=== PATIENT | female | born 1945 | race Caucasian/White ===

== ENCOUNTER → 2016-07-05 | Outpatient (CLI) | payer MEDICARE, BC ==
--- NOTE | 2016-07-06 11:06 | MM ---
Reason for exam: screening (asymptomatic). Last mammogram was performed 1 year ago. History: Patient is postmenopausal. Family history of breast cancer in 3 paternal cousins. Benign stereotactic core biopsy of the right breast, June 09, 2001. Physical Findings: A clinical breast exam by your physician is recommended on an annual basis and results should be correlated with mammographic findings. MG 3D Screening Mammo W/Cad Bilateral CC and MLO view(s) were taken. Prior study comparison: July 04, 2015, bilateral MG 3d screening mammo w/cad. July 01, 2014, left breast MG work up mamm w CAD LT. There are scattered fibroglandular densities. Previous mammotome biopsy in the right breast. No significant changes when compared with prior studies. ASSESSMENT: Benign, BI-RAD 2 RECOMMENDATION: Routine screening mammogram of both breasts in 1 year.
== END ==
LOC: RADMAMWWP 14:01
PROVIDERS: ATTEND Family Medicine
DX: Z12.31 Encounter for screening mammogram for malignant neoplasm of breast (principal)
CPT/HCPCS: 77063; G0202

== ENCOUNTER → 2016-08-16 | Outpatient (CLI) | payer MEDICARE, BC ==
--- NOTE | 2016-08-16 20:29 | BD ---
EXAMINATION TYPE: MG DEXA axial skeleton. DATE OF EXAM: 08/16/2016 12:57 PM COMPARISON: NONE CLINICAL HISTORY: 70-year-old female known osteoporosis Height: 65 Weight: 128.9 FRAX RISK QUESTIONS: Alcohol (3 or more units per day): no Family History (Parent hip fracture): no Glucocorticoids (More than 3mos): no (Ex: prednisone, prednisolone, methylprednisolone, dexamethasone, and hydrocortisone). History of Fracture in Adulthood: no Secondary Osteoporosis: 1. Type 1 Diabetes: no 2. Hyperthyroidism: no 3. Menopause before 45: yes 4. Malnutrition: no 5. Chronic liver disease: no Rheumatoid Arthritis: no Current Tobacco Use: no RISK FACTORS HISTORY OF: Hip Fracture (Right/Left): no Spine Fracture: no History of Wrist Fracture: no Surgery to Spine/Hip(right/left)/Wrist (right/left): no Family History of Osteoporosis: no Active: yes Diet low in dairy products/other sources of calcium: no Postmenopausal woman: hysterectomy age 37 Lost more than 2 inches in height since high school: yes Frequent falls: no Poor Health: no Adrenal Insufficiency: no MEDICATIONS: eye drops for glaucoma EXAM MEASUREMENTS: Bone mineral densitometry was performed using the [employer] System. Bone mineral density as measured about the Lumbar spine is: ----- L1-L4(G/cm2): 0.917 T Score Values are as follows: ----- L2: -2.1 ----- L3: -2.2 ----- L4: -2.7 ----- L1-L4: -2.2 Bone mineral density has: decreased -8.1 % since study of: 06.29.2013 Bone mineral density about the R hip (g/cm2): 0.801 Bone mineral density about the L hip (g/cm2): 0.765 T Score values are as follows: -----R Neck: -1.7 -----L Neck: -2.0 -----R Intertrochanter: -2.1 -----L Intertrochanter: -2.5 Bone mineral density has: decreased -5.5 % since study of: 06.29.2013 IMPRESSION: Osteopenia (T Score between -2.5 and -1) as noted by T score values in the lumbar spine and both hips . Note that measurements borderline osteoporosis within the lumbar spine. There is slightly increased risk of fracture and the patient may be considered for treatment. Re-Screen 2-5 years. NOTE: T-SCORE=SD OF THE YOUNG ADULT MEAN.
== END | disposition home or self-care (01) ==
LOC: RADBDWWP 12:29
PROVIDERS: ATTEND Family Medicine
DX: M85.851 Other specified disorders of bone density and structure, right thigh (principal); M81.0 Age-related osteoporosis without current pathological fracture; M85.852 Other specified disorders of bone density and structure, left thigh; M85.88 Other specified disorders of bone density and structure, other site
CPT/HCPCS: 77080

== ENCOUNTER 2017-01-12 19:16 | Emergency (ER) | payer MEDICARE, BC ==
[2017-01-12 19:24] VITALS: TEMP 97.6
[2017-01-12] MEDS ORDERED: SODIUM CHLORIDE 0.9% 1,000 ML IV STA (19:27)
--- NOTE | 2017-01-12 19:29 | ED ---
General Adult HPI - General Chief complaint: Dizziness Stated complaint: Dizzy Time Seen by Provider: 01/12/17 19:26 Source: patient, RN notes reviewed, old records reviewed Mode of arrival: wheelchair Limitations: no limitations - History of Present Illness Initial comments: This is a 71-year-old female the ER for evaluation today. Patient does present today evaluation regarding symptoms of that appeared to be like vertigo. Patient states the room was spinning around severely she felt that her nausea started to up and symptoms resolved. Patient has history of brain MRI 4 years ago which was normal. Patient has 4 episodes of similar events usually wince going from this position is standing to lying on her back and getting into bed. She states the room spins around she becomes nauseous those up and symptoms resolved. She not get checked out before as she thought that it was is a rare occurrence and because of both times it was self-limited patient coming in for evaluation today as she is just concerned over X and states that this happened and off times to be checked out - Related Data Home Medications Medication Instructions Recorded Confirmed Ascorbic Acid [Vitamin C] 500 mg PO DAILY 01/12/17 01/12/17 Calcium Carbonate/Vitamin D3 1 tab PO DAILY 01/12/17 01/12/17 [Calcium 600-Vit D3 800 Tab] Cholecalciferol [Vitamin D3] 5,000 unit PO DAILY 01/12/17 01/12/17 Latanoprost Ophth [Xalatan 0.005%] 1 drops BOTH EYES HS 01/12/17 01/12/17 Loratadine 10 mg PO DAILY 01/12/17 01/12/17 Lysine [l-Lysine] 500 mg PO DAILY 01/12/17 01/12/17 Magnesium Oxide [Mag-Ox] 250 mg PO DAILY 01/12/17 01/12/17 Multivitamins, Thera [Multivitamin 1 tab PO DAILY 01/12/17 01/12/17 (formulary)] Osteo Bone Complex 2 tab PO BID 01/12/17 01/12/17 Potassium 99 mg PO DAILY 01/12/17 01/12/17 Allergies Allergy/AdvReac Type Severity Reaction Status Date / Time No Known Allergies Allergy Verified 01/12/17 19:46 Review of Systems ROS Statement: Those systems with pertinent positive or pertinent negative responses have been documented in the HPI. ROS Other: All systems not noted in ROS Statement are negative. Past Medical History Past Medical History: No Reported History History of Any Multi-Drug Resistant Organisms: None Reported Additional Past Surgical History / Comment(s): thyroid sx Past Psychological History: No Psychological Hx Reported Smoking Status: Former smoker Past Alcohol Use History: Rare Past Drug Use History: None Reported General Exam - General Exam Comments Initial Comments: NH 20, no cerebellar deficit, heel toe and finger nose are normal Limitations: no limitations General appearance: alert, in no apparent distress Head exam: Present: atraumatic, normocephalic, normal inspection Eye exam: Present: normal appearance, PERRL, EOMI, nystagmus (Left). Absent: scleral icterus, conjunctival injection, periorbital swelling ENT exam: Present: normal exam, mucous membranes moist Neck exam: Present: normal inspection. Absent: tenderness, meningismus, lymphadenopathy Respiratory exam: Present: normal lung sounds bilaterally. Absent: respiratory distress, wheezes, rales, rhonchi, stridor Cardiovascular Exam: Present: regular rate, normal rhythm, normal heart sounds. Absent: systolic murmur, diastolic murmur, rubs, gallop, clicks GI/Abdominal exam: Present: soft, normal bowel sounds. Absent: distended, tenderness, guarding, rebound, rigid Extremities exam: Present: normal inspection, full ROM, normal capillary refill. Absent: tenderness, pedal edema, joint swelling, calf tenderness Back exam: Present: normal inspection Neurological exam: Present: alert, oriented X3, CN II-XII intact Psychiatric exam: Present: normal affect, normal mood Skin exam: Present: warm, dry, intact, normal color. Absent: rash Course Vital Signs 01/12/17 01/12/17 19:19 19:31 Temperature 97.6 F Pulse Rate 64 61 Respiratory 18 16 Rate Blood Pressure 136/83 135/82 O2 Sat by Pulse 100 100 Oximetry - Reevaluation(s) Reevaluation #1: 01/12/17 21:02 Spoke with family regarding diagnosis of vertigo. The patient, at this time patient able to stand and ambulate without difficulty or ataxia. EKG Findings - EKG Comments: EKG Findings:: EKG shows normal sinus rhythm rate of 64, NM 46, QRS 76, QTC 441 Medical Decision Making - Medical Decision Making 71 female here for evaluation. Patient has a vertiginous symptoms. At this time patient has remained without symptoms throughout emergency department stay. Patient can be discharged home - Lab Data Result diagrams: 01/12/17 19:45 01/12/17 19:45 Lab Results 01/12/17 01/12/17 01/12/17 Range/Units 19:45 19:45 19:45 WBC 9.6 (3.8-10.6) k/uL RBC 4.46 (3.80-5.40) m/uL Hgb 14.8 (11.4-16.0) gm/dL Hct 43.3 (34.0-46.0) % MCV 97.0 (80.0-100.0) fL MCH 33.3 (25.0-35.0) pg MCHC 34.3 (31.0-37.0) g/dL RDW 12.8 (11.5-15.5) % Plt Count 230 (150-450) k/uL Neutrophils % 84 % Lymphocytes % 10 % Monocytes % 3 % Eosinophils % 1 % Basophils % 0 % Neutrophils # 8.1 H (1.3-7.7) k/uL Lymphocytes # 1.0 (1.0-4.8) k/uL Monocytes # 0.3 (0-1.0) k/uL Eosinophils # 0.1 (0-0.7) k/uL Basophils # 0.0 (0-0.2) k/uL PT (9.0-12.0) sec INR (<1.2) APTT (22.0-30.0) sec Sodium 138 (137-145) mmol/L Potassium 5.0 (3.5-5.1) mmol/L Chloride 106 (98-107) mmol/L Carbon Dioxide 24 (22-30) mmol/L Anion Gap 8 mmol/L BUN 21 H (7-17) mg/dL Creatinine 0.69 (0.52-1.04) mg/dL Est GFR (MDRD) Af Amer >60 (>60 ml/min/1.73 sqM) Est GFR (MDRD) Non-Af >60 (>60 ml/min/1.73 sqM) Glucose 107 H (74-99) mg/dL Calcium 9.6 (8.4-10.2) mg/dL Phosphorus 3.1 (2.5-4.5) mg/dL Magnesium 2.2 (1.6-2.3) mg/dL Total Bilirubin 1.2 (0.2-1.3) mg/dL AST 44 H (14-36) U/L ALT 26 (9-52) U/L Alkaline Phosphatase 64 (38-126) U/L Total Creatine Kinase 118 (30-135) U/L CK-MB (CK-2) 3.2 H* (0.0-2.4) ng/mL CK-MB (CK-2) Rel Index 2.7 Troponin I <0.012 (0.000-0.034) ng/mL Total Protein 7.2 (6.3-8.2) g/dL Albumin 4.2 (3.5-5.0) g/dL 01/12/17 Range/Units 19:45 WBC (3.8-10.6) k/uL RBC (3.80-5.40) m/uL Hgb (11.4-16.0) gm/dL Hct (34.0-46.0) % MCV (80.0-100.0) fL MCH (25.0-35.0) pg MCHC (31.0-37.0) g/dL RDW (11.5-15.5) % Plt Count (150-450) k/uL Neutrophils % % Lymphocytes % % Monocytes % % Eosinophils % % Basophils % % Neutrophils # (1.3-7.7) k/uL Lymphocytes # (1.0-4.8) k/uL Monocytes # (0-1.0) k/uL Eosinophils # (0-0.7) k/uL Basophils # (0-0.2) k/uL PT 10.3 (9.0-12.0) sec INR 1.0 (<1.2) APTT 22.4 (22.0-30.0) sec Sodium (137-145) mmol/L Potassium (3.5-5.1) mmol/L Chloride (98-107) mmol/L Carbon Dioxide (22-30) mmol/L Anion Gap mmol/L BUN (7-17) mg/dL Creatinine (0.52-1.04) mg/dL Est GFR (MDRD) Af Amer (>60 ml/min/1.73 sqM) Est GFR (MDRD) Non-Af (>60 ml/min/1.73 sqM) Glucose (74-99) mg/dL Calcium (8.4-10.2) mg/dL Phosphorus (2.5-4.5) mg/dL Magnesium (1.6-2.3) mg/dL Total Bilirubin (0.2-1.3) mg/dL AST (14-36) U/L ALT (9-52) U/L Alkaline Phosphatase (38-126) U/L Total Creatine Kinase (30-135) U/L CK-MB (CK-2) (0.0-2.4) ng/mL CK-MB (CK-2) Rel Index Troponin I (0.000-0.034) ng/mL Total Protein (6.3-8.2) g/dL Albumin (3.5-5.0) g/dL - Radiology Data Radiology results: report reviewed (CT brain is negative for acute disease), image reviewed Disposition Clinical Impression: Vertigo, BPPV (benign paroxysmal positional vertigo) Disposition: HOME SELF-CARE Condition: Good Instructions: Vertigo (ED) Referrals: Dinorah Rosenbaum MD [Primary Care Provider] - 1-2 days
[2017-01-12 19:38] VITALS: RESP 16
[2017-01-12 20:04] LABS: Basophils % (A) 0 %; CH 32.3; CHCM 33.4; Eosinophils # (A) 0.1 k/uL (0-0.7); Eosinophils % (A) 1 %; HCT 43.3 % (34.0-46.0); HDW 2.17; HGB 14.8 gm/dL (11.4-16.0); Luc # (Auto) 0.09; Luc % (Auto) 1; Lymphocytes % (A) 10 %; MCH 33.3 pg (25.0-35.0); MCHC 34.3 g/dL (31.0-37.0); Mean Platelet Volume 6.8; Monocytes # (A) 0.3 k/uL (0-1.0); Monocytes % (A) 3 %; Neutrophils # (A) 8.1 k/uL (1.3-7.7); Neutrophils % (A) 84 %; RBC 4.46 m/uL (3.80-5.40); RDW 12.8 % (11.5-15.5); WBC 9.6 k/uL (3.8-10.6); WBC (Perox) 10.12
[2017-01-12 20:16] LABS: Partial Thromboplastin Time 22.4 sec (22.0-30.0); Prothrombin Time 10.3 sec (9.0-12.0)
[2017-01-12 20:23] LABS: ALT 26 U/L (9-52); AST 44 U/L (14-36); Alkaline Phosphatase 64 U/L (38-126); Anion Gap 8 mmol/L; Blood Urea Nitrogen 21 mg/dL (7-17); Calcium 9.6 mg/dL (8.4-10.2); Carbon Dioxide 24 mmol/L (22-30); Chloride 106 mmol/L (98-107); Glucose 107 mg/dL (74-99); Magnesium 2.2 mg/dL (1.6-2.3); Non-African American GFR(MDRD) >60 (>60 ml/min/1.73 sqM); Phosphorous 3.1 mg/dL (2.5-4.5); Sodium 138 mmol/L (137-145); Total Bilirubin 1.2 mg/dL (0.2-1.3); Total Protein 7.2 g/dL (6.3-8.2)
[2017-01-12 20:28] LABS: Creatine Kinase 118 U/L (30-135)
[2017-01-12 20:41] LABS: Troponin I <0.012 ng/mL (0.000-0.034)
[2017-01-12 20:44] LABS: Creatine Kinase MB 3.2 ng/mL (0.0-2.4)
--- NOTE | 2017-01-12 20:59 | CT ---
EXAMINATION TYPE: CT brain wo con DATE OF EXAM: 01/12/2017 COMPARISON: NONE HISTORY: Dizziness. CT DLP: 1072.3 mGycm Automated exposure control for dose reduction was used. FINDINGS: Ventricles have normal size. There is no mass effect nor midline shift. There is no sign of intracran ial hemorrhage. The calvarium is intact. IMPRESSION: NEGATIVE CT SCAN OF THE BRAIN.
[2017-01-12 21:09] VITALS: BP 127/73; PULSE 74
[2017-01-12 21:25] LABS: Amorphous Sediment,Urine Moderate /hpf; Appearance,Urine Turbid (Clear); Bilirubin,Urine Negative (Negative); Glucose,Urine (UA) Negative (Negative); Ketones,Urine Negative (Negative); Leukocyte Esterase,Urine Negative (Negative); Nitrite,Urine Negative (Negative); Particle Count 6909; Protein,Urine Negative (Negative); UA Billing (MACRO vs. MICRO) MICRO; Urobilinogen,Urine <2.0 mg/dL (<2.0)
== END 2017-01-12 21:51 | disposition home or self-care (01) ==
LOC: EC 19:16
DX: H81.10 Benign paroxysmal vertigo, unspecified ear (principal); H55.00 Unspecified nystagmus; Z87.891 Personal history of nicotine dependence; Z79.899 Other long term (current) drug therapy
CPT/HCPCS: 36415; 70450; 80053; 81001; 82550; 82553; 83735; 84100; 84484; 85025; 85610; 85730; 87086; 93005; 96360; 99285

== ENCOUNTER → 2017-07-08 | Outpatient (CLI) | payer MEDICARE, BC ==
--- NOTE | 2017-07-10 12:47 | MM ---
Reason for exam: screening (asymptomatic). Last mammogram was performed 1 year ago. History: Patient is postmenopausal. Family history of breast cancer in 3 paternal cousins. Benign stereotactic core biopsy of the right breast, June 09, 2001. Physical Findings: A clinical breast exam by your physician is recommended on an annual basis and results should be correlated with mammographic findings. MG 3D Screening Mammo W/Cad Bilateral CC and MLO view(s) were taken. Prior study comparison: July 05, 2016, bilateral MG 3d screening mammo w/cad. July 04, 2015, bilateral MG 3d screening mammo w/cad. There are scattered fibroglandular densities. Finding: There are typically benign vascular, round calcifications in both breasts. Previous mammotome biopsy in the right breast. There is no discrete abnormality. ASSESSMENT: Benign, BI-RAD 2 RECOMMENDATION: Routine screening mammogram of both breasts in 1 year.
== END | disposition home or self-care (01) ==
LOC: RADMAMWWP 07:54
PROVIDERS: ATTEND Family Medicine
DX: Z12.31 Encounter for screening mammogram for malignant neoplasm of breast (principal)
CPT/HCPCS: 77063; 77067

== ENCOUNTER → 2018-04-30 | Day surgery (SDC) | payer MEDICARE, BC ==
[2018-04-25 14:27] VITALS: BMI 20.3
[~2018-04-30] MED LIST: LACTATED RINGERS 1,000 ML IV SCH; LIDOCAINE 1% 20 ML VIAL (10MG/ML) FOR IV START INTRADERMA PRN; PROPOFOL 10 MG/ML 20 ML VIAL IV ONE
[2018-04-30 09:42] VITALS: TEMP 97.8
--- NOTE | 2018-04-30 10:17 | P.GSHP ---
History of Present Illness H&P Date: 04/30/18 Chief Complaint: GI bleed This is a 72-year-old female who presents today for colonoscopy. She had a three-day history of rectal bleeding. The bleeding has stopped. The patient will undergo colonoscopy today to evaluate for rectal bleeding. Past Medical History Past Medical History: No Reported History, Eye Disorder Additional Past Medical History / Comment(s): Blood in stool, Glaucoma History of Any Multi-Drug Resistant Organisms: None Reported Past Surgical History: Adenoidectomy, Breast Surgery, Hysterectomy, Tonsillectomy Additional Past Surgical History / Comment(s): thyroid sx, colonoscopy, D&C's, R breast bx. Past Anesthesia/Blood Transfusion Reactions: Previous Problems w/ Anesthesia Additional Past Anesthesia/Blood Transfusion Reaction / Comment(s): Difficult to wake up after anesthesia. Smoking Status: Former smoker - Past Family History Mother Family Medical History: No Reported History Medications and Allergies Home Medications Medication Instructions Recorded Confirmed Type Ascorbic Acid [Vitamin C] 500 mg PO DAILY 01/12/17 04/30/18 History Calcium Carbonate/Vitamin D3 1 tab PO DAILY 01/12/17 04/30/18 History [Calcium 600-Vit D3 800 Tab] Cholecalciferol [Vitamin D3] 5,000 unit PO DAILY 01/12/17 04/30/18 History Latanoprost Ophth [Xalatan 0.005%] 1 drops BOTH EYES HS 01/12/17 04/30/18 History Loratadine 10 mg PO DAILY 01/12/17 04/30/18 History Lysine [l-Lysine] 500 mg PO DAILY 01/12/17 04/30/18 History Magnesium Oxide [Mag-Ox] 250 mg PO DAILY 01/12/17 04/30/18 History Meclizine [Antivert] 25 mg PO TID #30 tab 01/12/17 04/30/18 Rx Multivitamins, Thera [Multivitamin 1 tab PO DAILY 01/12/17 04/30/18 History (formulary)] Ondansetron Odt [Zofran Odt] 4 mg PO Q8HR PRN #30 tab 01/12/17 04/30/18 Rx Osteo Bone Complex 2 tab PO BID 01/12/17 04/30/18 History Potassium 99 mg PO DAILY 01/12/17 04/30/18 History Timolol Maleate [Timolol Maleate 1 applic BOTH EYES DAILY 04/25/18 04/30/18 History 0.5% Ophth Gel] Allergies Allergy/AdvReac Type Severity Reaction Status Date / Time No Known Allergies Allergy Verified 04/30/18 09:25 Surgical - Exam Vital Signs Temp Pulse Resp BP Pulse Ox 97.8 F 71 15 115/72 98 04/30/18 09:40 04/30/18 09:40 04/30/18 09:40 04/30/18 09:40 04/30/18 09:40 - General well developed, no distress - Eyes PERRL - ENT normal pinna - Neck no masses - Respiratory normal expansion - Cardiovascular Rhythm: regular - Abdomen Abdomen: soft, non tender Assessment and Plan Assessment: GI bleed. We'll perform colonoscopy.
[2018-04-30 10:32] VITALS: RESP 16
--- NOTE | 2018-04-30 10:32 | P.OP ---
Date of Procedure: 04/30/18 Preoperative Diagnosis: GI bleed Postoperative Diagnosis: Diverticulosis Procedure(s) Performed: Colonoscopy Anesthesia: MAC Surgeon: Scott Lyons Pathology: none sent Condition: stable Disposition: PACU Description of Procedure: The patient's placed on the endoscopy table in the lateral position. She received IV sedation. Digital rectal exam was performed which revealed no abnormalities. The flexible colonoscope was then placed patient anus and passed throughout the entire colon. The ileocecal valve was visualized. The cecum, ascending and transverse colon appeared normal. In the descending; was mild diverticular changes. The scope was then brought back the rectum and this appeared normal. Scope was withdrawn for patient.
[2018-04-30 10:59] VITALS: BP 122/80; PULSE 69
--- NOTE | 2018-05-02 18:11 | CDI ---
Date: 05/02/18 CDS/Senior Project Coordinator Name: Hue Pineda Phone: If any questions, call Amy Kamara Septic [employer] Service Technician at [phone] Patient Name: Rebecca Irizarry Admit Date: 04/30/18 Discharge Date: 04/30/18 ATTENTION: The [facility] Coding Staff appreciate your assistance in clarifying documentation. Please respond to the clarification below the line at the bottom and electronically sign. The [facility] Coding staff will review the response and follow-up if needed. Please note: Queries are made part of the Legal Health Record. If you have any questions, please contact the Septic Tank Service Technician. Dear Dr. Lyons, Please provide clarification as to if the GI bleed is secondary to one of the diagnoses found. Thank you for your kind consideration. There was no evidence of active GI bleed. It is presumed that she may have had a GI bleed from the diverticulosis. MTDD
== END ==
LOC: ORWHC2ENDO 09:11
PROVIDERS: ATTEND Surgery
DX: K57.30 Diverticulosis of large intestine without perforation or abscess without bleeding (principal); K92.2 Gastrointestinal hemorrhage, unspecified; H40.9 Unspecified glaucoma; Z87.891 Personal history of nicotine dependence; Z79.899 Other long term (current) drug therapy
CPT/HCPCS: 45378; J2704

== ENCOUNTER → 2018-07-09 | Outpatient (CLI) | payer MEDICARE, BC ==
--- NOTE | 2018-07-11 10:16 | MM ---
Reason for exam: screening (asymptomatic). Last mammogram was performed 1 year ago. History: Patient is postmenopausal. Family history of breast cancer in 3 paternal cousins. Benign stereotactic core biopsy of the right breast, June 09, 2001. Physical Findings: A clinical breast exam by your physician is recommended on an annual basis and results should be correlated with mammographic findings. MG 3D Screening Mammo W/Cad Bilateral CC and MLO view(s) were taken. Prior study comparison: July 08, 2017, bilateral MG 3d screening mammo w/cad. July 05, 2016, bilateral MG 3d screening mammo w/cad. There are scattered fibroglandular densities. Previous mammotome biopsy in the right breast. No significant changes when compared with prior studies. ASSESSMENT: Negative, BI-RAD 1 RECOMMENDATION: Routine screening mammogram of both breasts in 1 year.
== END | disposition home or self-care (01) ==
LOC: RADMAMWWP 14:40
PROVIDERS: ATTEND Family Medicine
DX: Z12.31 Encounter for screening mammogram for malignant neoplasm of breast (principal)
CPT/HCPCS: 77063; 77067

== ENCOUNTER → 2019-10-02 | Outpatient (CLI) | payer MEDICARE, BC ==
--- NOTE | 2019-10-06 11:51 | MM ---
Reason for exam: screening (asymptomatic). Last mammogram was performed 1 year and 3 months ago. History: Patient is postmenopausal. Family history of breast cancer in 3 paternal cousins. Benign stereotactic core biopsy of the right breast, June 09, 2001. Physical Findings: A clinical breast exam by your physician is recommended on an annual basis and results should be correlated with mammographic findings. MG 3D Screening Mammo W/Cad Bilateral CC and MLO view(s) were taken. Prior study comparison: July 09, 2018, bilateral MG 3d screening mammo w/cad. July 08, 2017, bilateral MG 3d screening mammo w/cad. The breast tissue is heterogeneously dense. This may lower the sensitivity of mammography. Previous mammotome biopsy in the right breast. No significant changes when compared with prior studies. ASSESSMENT: Negative, BI-RAD 1 RECOMMENDATION: Routine screening mammogram of both breasts in 1 year.
== END | disposition home or self-care (01) ==
LOC: RADMAMWWP 07:32
PROVIDERS: ATTEND Family Medicine
DX: Z12.31 Encounter for screening mammogram for malignant neoplasm of breast (principal)
CPT/HCPCS: 77063; 77067

== ENCOUNTER → 2019-10-27 | Outpatient (CLI) | payer MEDICARE, BC ==
--- NOTE | 2019-10-27 16:23 | BD ---
EXAMINATION TYPE: Axial Bone Density DATE OF EXAM: 10/27/2019 COMPARISON: 08.16.2016 CLINICAL HISTORY: 73 YR OLD FEMALE.....ICD-10 CODE: M85.50 OTHER SPECIFIC DISORDER OF BONE Height: 65 Weight: 129 FRAX RISK QUESTIONS: Secondary Osteoporosis: YES 3. Menopause before 45: YES, AT 39 RISK FACTORS HISTORY OF: Postmenopausal woman: HYST AT AGE 37, CHERELLE AT 39 YRS OLD Take estrogen and/or progesterone medications: IN THE PAST FOR ONLY ABOUT 6 MOS Hyperparathyroidism: NO Adrenal Insufficiency: NO MEDICATIONS: Osteoporosis Medications: TRIED IN THE PAST, CANNOT TAKE THEM Additional Medications: VIT D3 AND CALCIUM Additional History: NOTHING ADDITIONAL TO NOTE EXAM MEASUREMENTS: Bone mineral densitometry was performed using the [employer] System. Bone mineral density as measured about the Lumbar spine is: ----- L1-L4(G/cm2): 0.933 T Score Values are as follows: ----- L1: -1.3 ----- L2: -1.9 ----- L3: -2.3 ----- L4: -2.6 ----- L1-L4: -2.1 Bone mineral density has: Increased 1.0% since study of: 08.16.2016 Bone mineral density about the R hip (g/cm2): 0.753 Bone mineral density about the L hip (g/cm2): 0.748 T Score values are as follows: -----R Neck: -1.9 -----L Neck: -2.0 -----R Total: -2.0 -----L Total: -2.1 Bone mineral density has: Decreased -0.4% since study of: 08.16.2016 FRAX%s: THERE IS A 12.1% CHANCE FOR A MAJOR OSTEOPOROTIC FX AND A 3.3% FOR HIP.....PROBABILITY FOR FX IN 10 YRS TIME IMPRESSION: Osteopenia (T Score between -2.5 and -1). There is slightly increased risk of fracture and the patient may be considered for treatment. Re-Screen 2-5 years. NOTE: T-SCORE=SD OF THE YOUNG ADULT MEAN.
== END | disposition home or self-care (01) ==
LOC: RADBDWWP 07:44
PROVIDERS: ATTEND Family Medicine
DX: M81.8 Other osteoporosis without current pathological fracture (principal); Z78.0 Asymptomatic menopausal state
CPT/HCPCS: 77080

== ENCOUNTER → 2020-11-02 | Outpatient (CLI) | payer MEDICARE, BC ==
--- NOTE | 2020-11-03 14:52 | MM ---
Reason for exam: screening (asymptomatic). Last mammogram was performed 1 year and 1 month ago. History: Patient is postmenopausal. Family history of breast cancer in 3 paternal cousins. Benign stereotactic core biopsy of the right breast, June 09, 2001. Physical Findings: A clinical breast exam by your physician is recommended on an annual basis and results should be correlated with mammographic findings. MG 3D Screening Mammo W/Cad Bilateral CC and MLO view(s) were taken. Prior study comparison: October 02, 2019, bilateral MG 3d screening mammo w/cad. July 09, 2018, bilateral MG 3d screening mammo w/cad. There are scattered fibroglandular densities. Right biopsy clip. ASSESSMENT: Negative, BI-RAD 1 RECOMMENDATION: Routine screening mammogram of both breasts in 1 year.
== END | disposition home or self-care (01) ==
LOC: RADMAMWWP 09:02
PROVIDERS: ATTEND Family Medicine
DX: Z12.31 Encounter for screening mammogram for malignant neoplasm of breast (principal)
CPT/HCPCS: 77063; 77067

== ENCOUNTER → 2021-11-06 | Outpatient (CLI) | payer MEDICARE ==
--- NOTE | 2021-11-07 08:51 | BD ---
EXAMINATION TYPE: Axial Bone Density DATE OF EXAM: 11/06/2021 COMPARISON: 08.16.2016 CLINICAL HISTORY: 75 years year old Female. ICD-10 CODE: Z78.0 MENOPAUSAL STATE Height: 65.5 Weight: 127 FRAX RISK QUESTIONS: Secondary Osteoporosis: 3. Menopause before 45: YES RISK FACTORS HISTORY OF: Active: YES Postmenopausal woman: YES HYSTERECTOMY AT 37 Lost more than 2 inches in height since high school: YES MEDICATIONS: Additional Medications: EYE DROPS FOR GLAUCOMA, CALCIUM WITH VITAMIN D Additional History: EXAM MEASUREMENTS: Bone mineral densitometry was performed using the [employer]. Bone mineral density as measured about the Lumbar spine is: ----- L1-L4(G/cm2): 0.890 T Score Values are as follows: ----- L1: -1.9 ----- L2: -2.2 ----- L3: -2.4 ----- L4: -3.1 ----- L1-L4: -2.4 Bone mineral density has: Decreased -3.0% since study of: 08.16.2016 Bone mineral density about the R hip (g/cm2): 0.732 Bone mineral density about the L hip (g/cm2): 0.717 T Score values are as follows: -----R Neck: -2.0 -----L Neck: -2.2 -----R Total: -2.2 -----L Total: -2.3 Bone mineral density has: Decreased -4.0% since study of: 08.16.2016 FRAX%s: The graph provided illustrates a 14.0% chance for a major osteoporotic fx and a 4.3% chance f or the hips probability for fx in 10 years time. IMPRESSION: Osteopenia (T Score between -2.5 and -1). There is slightly increased risk of fracture and the patient may be considered for treatment. Re-Screen 2-5 years. NOTE: T-SCORE=SD OF THE YOUNG ADULT MEAN.
--- NOTE | 2021-11-07 11:32 | MM ---
Reason for Exam: Screening (asymptomatic). Last screening mammogram was performed 12 month(s) ago. Patient History: Menarche at age 11. First Full-Term at age 20. Hysterectomy at age 37. Postmenopausal. 06/09/2001, Benign Stereotactic Core Biopsy on the right side. Paternal cousin had breast cancer, age 67. Paternal cousin had breast cancer, age 70. Paternal cousin (sylvia) had breast cancer, age 50. Risk Values: Michelle 5 year model risk: 1.9%. NCI Lifetime model risk: 3.8%. Prior Study Comparison: 07/09/2018 Bilateral Screening Mammogram, [facility]. 10/02/2019 Bilateral Screening Mammogram, [facility]. 11/02/2020 Bilateral Screening Mammogram, [facility]. Tissue Density: The breast tissue is heterogeneously dense. This may lower the sensitivity of mammography. Findings: Analyzed By CAD. There is no suspicious group of microcalcifications or new suspicious mass in either breast. Benign calcifications noted. Surgical clip in the right breast noted. Overall Assessment: Benign, BI-RAD 2 Management: Screening Mammogram of both breasts in 1 year. A clinical breast exam by your physician is recommended on an annual basis and results should be correlated with mammographic findings. Electronically signed and approved by: Nicholas Real M.D. Radiologis
== END | disposition home or self-care (01) ==
LOC: RADBDWWP 11:08
PROVIDERS: ATTEND Family Medicine
DX: Z12.31 Encounter for screening mammogram for malignant neoplasm of breast (principal); Z78.0 Asymptomatic menopausal state
CPT/HCPCS: 77063; 77067; 77080

== ENCOUNTER → 2022-11-07 | Outpatient (CLI) | payer MEDICARE ==
--- NOTE | 2022-11-08 08:30 | MM ---
Reason for Exam: Screening (asymptomatic). Last screening mammogram was performed 12 month(s) ago. Patient History: Menarche at age 11. First Full-Term at age 20. Hysterectomy at age 37. Postmenopausal. 06/09/2001, Benign Stereotactic Core Biopsy on the right side. Paternal cousin had breast cancer, age 67. Paternal cousin had breast cancer, age 70. Paternal cousin (sylvia) had breast cancer, age 50. Risk Values: Michelle 5 year model risk: 1.8%. NCI Lifetime model risk: 3.5%. Prior Study Comparison: 07/05/2016 Bilateral Screening Mammogram, [facility]. 07/08/2017 Bilateral Screening Mammogram, [facility]. 07/09/2018 Bilateral Screening Mammogram, [facility]. 10/02/2019 Bilateral Screening Mammogram, [facility]. 11/02/2020 Bilateral Screening Mammogram, [facility]. 11/06/2021 Bilateral MG 3D screening mammo w/cad, [facility]. Tissue Density: The breast tissue is heterogeneously dense. This may lower the sensitivity of mammography. Findings: Analyzed By CAD. There is no suspicious group of microcalcifications or new suspicious mass in either breast. Overall Assessment: Benign, BI-RAD 2 Management: Screening Mammogram of both breasts in 1 year. . Patient should continue monthly self-breast exams. A clinical breast exam by your physician is recommended on an annual basis. This exam should not preclude additional follow-up of suspicious palpable abnormalities. Note on Michelle scores and lifetime risk: 1. A Michelle score greater than 3% is considered moderate risk. If this is the case, consider specialist referral to assess eligibility for a risk reducing agent. 2. If overall lifetime risk for the development of breast cancer is 20% or higher, the patient may qualify for future screening with alternating mammogram and breast MRI. Electronically signed and approved by: Neftaly Fraser M.D. Radiologis
== END | disposition home or self-care (01) ==
LOC: RADMAMWWP 07:54
PROVIDERS: ATTEND Family Medicine
DX: Z12.31 Encounter for screening mammogram for malignant neoplasm of breast (principal); Z78.0 Asymptomatic menopausal state; Z80.3 Family history of malignant neoplasm of breast
CPT/HCPCS: 77063; 77067

== ENCOUNTER → 2023-11-11 | Outpatient (CLI) | payer MEDICARE ==
--- NOTE | 2023-11-11 15:22 | BD ---
EXAMINATION TYPE: Axial Bone Density DATE OF EXAM: 11/11/2023 CLINICAL HISTORY: 77 years old Female. ICD-10 CODE: Z78.0 ASYMPTOMATIC MENOPAUSAL Height: 133lbs Weight: 64.5lbs FRAX RISK QUESTIONS: Alcohol (3 or more units per day): No Family History (Parent hip fracture): No Glucocorticoids (More than 3mos): No (Ex: prednisone, prednisolone, methylprednisolone, dexamethasone, and hydrocortisone). History of Fracture in Adulthood: No Secondary Osteoporosis: 1. Type 1 Diabetes: No 2. Hyperthyroidism: No 3. Menopause before 45: No 4. Malnutrition: No 5. Chronic liver disease: No Rheumatoid Arthritis: No Current Tobacco Use: No RISK FACTORS HISTORY OF: Hip Fracture (Right/Left): No Spine Fracture: No History of Wrist Fracture: No Surgery to Spine/Hip(right/left)/Wrist (right/left): No MEDICATIONS: Thyroid Medications: No Osteoporosis Medications: No EXAM MEASUREMENTS: Bone mineral densitometry was performed using the [employer] System. Bone mineral density as measured about the Lumbar spine is: ----- L1-L4(G/cm2): 0.871 T Score Values are as follows: ----- L1: -2.1 ----- L2: -2.5 ----- L3: -2.5 ----- L4: -3.2 ----- L1-L4: -2.6 Z Score Values are as follows: ----- L1: -0.1 ----- L2: -0.5 ----- L3: -0.5 ----- L4: -1.2 ----- L1-L4: -0.6 Bone mineral density has: decreased -2.1% since study of: 11/06/2021 Bone mineral density about the R hip (g/cm2): 0.759 Bone mineral density about the L hip (g/cm2): 0.717 T Score values are as follows: -----R Neck: -1.8 -----L Neck: -2.3 -----R Total: -2.0 -----L Total: -2.3 Z Score values are as follows: -----R Neck: 0.4 -----L Neck: -0.1 -----R Total: 0.1 -----L Total: -0.3 Bone mineral density has: increased 1.9% since study of: 11/06/2021 FRAX%s: The graph provided illustrates a 16.0% chance for a major osteoporotic fx and a 5.3% chance f or the hips probability for fx in 10 years time. IMPRESSION: Osteoporosis (T Score less than -2.5). There is increased fracture risk and therapy is usually indicated based on age. Re-Screen 1-2 years. NOTE: T-SCORE=SD OF THE YOUNG ADULT MEAN.
--- NOTE | 2023-11-13 08:42 | MM ---
Reason for Exam: Screening (asymptomatic). Last screening mammogram was performed 12 month(s) ago. Patient History: Menarche at age 11. First Full-Term at age 20. Hysterectomy at age 37. Postmenopausal. 06/09/2001, Benign Stereotactic Core Biopsy on the right side. Paternal cousin had breast cancer, age 67. Paternal cousin had breast cancer, age 70. Paternal cousin (sylvia) had breast cancer, age 50. Risk Values: Michelle 5 year model risk: 1.8%. NCI Lifetime model risk: 3.3%. Prior Study Comparison: 11/02/2020 Bilateral Screening Mammogram, [facility]. 11/06/2021 Bilateral MG 3D screening mammo w/cad, [facility]. 11/07/2022 Bilateral MG 3D screening mammo w/cad, [facility]. Tissue Density: The breasts are heterogeneously dense, which may obscure small masses. Findings: Analyzed By CAD. There is no suspicious group of microcalcifications or new suspicious mass in either breast. Biopsy clip marker right breast. Benign calcifications. Overall Assessment: Benign, BI-RAD 2 Management: Screening Mammogram of both breasts in 1 year. . Patient should continue monthly self-breast exams. A clinical breast exam by your physician is recommended on an annual basis. This exam should not preclude additional follow-up of suspicious palpable abnormalities. Note on Michelle scores and lifetime risk: 1. A Michelle score greater than 3% is considered moderate risk. If this is the case, consider specialist referral to assess eligibility for a risk reducing agent. 2. If overall lifetime risk for the development of breast cancer is 20% or higher, the patient may qualify for future screening with alternating mammogram and breast MRI. Electronically signed and approved by: Nicholas Real M.D. Radiologis
== END | disposition home or self-care (01) ==
LOC: RADMAMWWP 09:17
PROVIDERS: ATTEND Family Medicine
DX: Z12.31 Encounter for screening mammogram for malignant neoplasm of breast (principal); R92.333 Mammographic heterogeneous density, bilateral breasts; Z78.0 Asymptomatic menopausal state; Z80.3 Family history of malignant neoplasm of breast
CPT/HCPCS: 77063; 77067; 77080

== ENCOUNTER → 2024-11-11 | Outpatient (CLI) | payer MEDICARE ==
--- NOTE | 2024-11-11 16:29 | MM ---
Reason for Exam: Screening (asymptomatic). Last screening mammogram was performed 12 month(s) ago. Patient History: Menarche at age 11. First Full-Term at age 20. Hysterectomy at age 37. Postmenopausal. 06/09/2001, Benign Stereotactic Core Biopsy on the right side. Paternal cousin had breast cancer, age 67. Paternal cousin had breast cancer, age 70. Paternal cousin (sylvia) had breast cancer, age 50. Maternal cousin had breast cancer. Risk Values: Michelle 5 year model risk: 1.8%. NCI Lifetime model risk: 3.0%. Prior Study Comparison: 11/06/2021 Bilateral MG 3D screening mammo w/cad, [facility]. 11/07/2022 Bilateral MG 3D screening mammo w/cad, [facility]. 11/11/2023 Bilateral MG 3D screening mammo w/cad, [facility]. Tissue Density: There are scattered areas of fibroglandular density. Findings: Analyzed By CAD. Right breast biopsy clip. Right breast: There is no suspicious group of microcalcifications or new suspicious mass. Left breast: There is no suspicious group of microcalcifications or new suspicious mass. Overall Assessment: Benign, BI-RAD 2 Management: Screening Mammogram of both breasts in [address] [facility] will attempt to contact patient to return for supplemental views and ultrasound if indicated. Patient should continue monthly self-breast exams. A clinical breast exam by your physician is recommended on an annual basis. This exam should not preclude additional follow-up of suspicious palpable abnormalities. Note on Michelle scores and lifetime risk: 1. A Michelle score greater than 3% is considered moderate risk. If this is the case, consider specialist referral to assess eligibility for a risk reducing agent. 2. If overall lifetime risk for the development of breast cancer is 20% or higher, the patient may qualify for future screening with alternating mammogram and breast MRI. [facility], , 11/11/2024 4:26 PM. Electronically signed and approved by: Fernando Courtney DO
== END | disposition home or self-care (01) ==
LOC: RADMAMWWP 13:35
PROVIDERS: ATTEND Family Medicine
DX: Z12.31 Encounter for screening mammogram for malignant neoplasm of breast (principal); R92.323 Mammographic fibroglandular density, bilateral breasts; Z78.0 Asymptomatic menopausal state; Z80.3 Family history of malignant neoplasm of breast
CPT/HCPCS: 77063; 77067